=== PATIENT | male | born 1970 | race Caucasian/White ===

== ENCOUNTER 2018-11-13 09:13 | Emergency (ER) | payer BC ==
[~2018-11-13] VITALS: Ht 182.9 cm; Wt 79.4 kg
[~2018-11-13 09:13] MED LIST: ALBU90OI INH; ALBU90OI61 INH; AZIT250 PO; CIPR500 PO; CLIN300 PO; HYDACE5 PO; POLTRIOPSO OD; PROM6.25SY PO; RXHYDACE PO; SULTRIDS PO
== END 2018-11-13 09:46 | disposition home or self-care (01) ==
LOC: ER 09:13
DX: S60.351A Superficial foreign body of right thumb, initial encounter (principal); W45.8XXA Other foreign body or object entering through skin, initial encounter; Z88.0 Allergy status to penicillin; F17.200 Nicotine dependence, unspecified, uncomplicated
CPT/HCPCS: 10120; 99283-25